=== PATIENT | female | born 1970 | race Caucasian/White ===

== ENCOUNTER 2016-08-28 12:48 | Day surgery (SDC) | payer OTHER ==
[~2016-08-28 12:48] MED LIST: RINGERS SOLUTION,LACTATED 1,000 ML IV PRN; ceFAZolin SODIUM 2 GM in DEXTROSE 5 % IN WATER 50 ML IV PRN
[2016-08-28] MEDS ORDERED: RINGERS SOLUTION,LACTATED 1,000 ML IV ONE (13:50)
[2016-08-28] MEDS ORDERED: BUPIVACAINE HCL 50 ML VIAL IJ ONE (14:00)
[2016-08-28] MEDS ORDERED: LIDOCAINE HCL 50 ML VIAL IJ ONE ×2 (14:00→14:20)
[2016-08-28] MEDS ORDERED: DEXAMETHASONE SOD PHOSPHATE 4 MG/ML VIAL IJ ONE (14:28)
[2016-08-28 15:28] VITALS: BP 123/75
== END 2016-08-28 12:49 | disposition home or self-care (01) ==
LOC: AMB 12:48
PROVIDERS: ATTEND Student in an Organized Health Care Education/Training Program
PROC: 0J8R0ZZ Division of Left Foot Subcutaneous Tissue and Fascia, Open Approach (ICD-10-PCS; principal; 2016-08-28 13:45)
DX: M72.2 Plantar fascial fibromatosis (principal); D50.9 Iron deficiency anemia, unspecified; F41.9 Anxiety disorder, unspecified; Z68.43 Body mass index [BMI] 50.0-59.9, adult